=== PATIENT | female | born 1995 | race Caucasian/White ===

== ENCOUNTER 2019-03-03 22:09 | Emergency (ER) | payer SELFPAY ==
[2019-03-03 23:57] LABS: APPEARANCE,URINE CLEAR; BILIRUBIN,URINE NEGATIVE (NEGATIVE); COLOR,URINE YELLOW; GLUCOSE, URINE NEGATIVE (NEGATIVE); KETONES,URINE TRACE mg/dL (NEGATIVE); LEUKOCYTE ESTERASE,URINE NEGATIVE (NEGATIVE); NITRITE,URINE NEGATIVE (NEGATIVE); PROTEIN,URINE NEGATIVE (NEGATIVE); URINE SPECIFIC GRAVITY 1.015; UROBILINOGEN,URINE NEGATIVE mg/dL (<2.0)
[2019-03-04 00:07] LABS: ABSOLUTE EOSINOPHILS # (AUTO) 0.3 10^3/uL (0.0-0.6); ABSOLUTE LYMPHOCYTES (AUTO) 2.6 10^3/uL (0.5-4.7); ABSOLUTE MONOCYTES (AUTO) 0.5 10^3/uL (0.1-1.4); ABSOLUTE NEUT (AUTO) 3.3 10^3/uL (1.7-8.2); BASOPHILS % (AUTO) 0.5 % (0-2); HEMATOCRIT 42.8 % (36.0-47.0); HEMOGLOBIN 14.4 g/dL (12.0-15.5); LYMPHOCYTES % (AUTO) 38.7 % (13-45); MEAN CORPUSCULAR HEMOGLOBIN 30.1 pg (27.0-33.4); MEAN CORPUSCULAR HGB CONC 33.6 g/dL (32.0-36.0); MEAN CORPUSCULAR VOLUME 90 fl (80-97); MONOCYTES % (AUTO) 8.1 % (3-13); PLATELET COUNT 209 10^3/uL (150-450); RED BLOOD COUNT 4.77 10^6/uL (3.72-5.28); RED CELL DISTRIBUTION WIDTH 13.2 % (11.5-14.0); SEGMENTED NEUTROPHILS % (AUTO) 48.7 % (42-78); TOTAL CELLS COUNTED % (AUTO) 100 %; WHITE BLOOD COUNT 6.8 10^3/uL (4.0-10.5)
[2019-03-04] MEDS ORDERED: ONDANSETRON 4 MG TAB.RAPDIS PO ONE (00:08)
[2019-03-04] MEDS ORDERED: KETOROLAC TROMETHAMINE 10 MG TABLET PO ONE (00:09)
[2019-03-04 00:12] LABS: ALBUMIN 4.7 g/dL (3.5-5.0); ALKALINE PHOSPHATASE 61 U/L (38-126); ANION GAP 11 (5-19); ASPARTATE AMINO TRANSFERASE 22 U/L (14-36); BILIRUBIN,DIRECT 0.2 mg/dL (0.0-0.4); BILIRUBIN,TOTAL 0.4 mg/dL (0.2-1.3); BLOOD UREA NITROGEN 13 mg/dL (7-20); CALCIUM 9.8 mg/dL (8.4-10.2); CARBON DIOXIDE 25 mmol/L (22-30); CHLORIDE 104 mmol/L (98-107); GLUCOSE 91 mg/dL (75-110); POTASSIUM 3.9 mmol/L (3.6-5.0); TOTAL PROTEIN 7.7 g/dL (6.3-8.2)
--- NOTE | 2019-03-04 01:22 | RADIOLOGY REPORT (SQ) ---
EXAM DESCRIPTION: US PELVIS TRANSVAGINAL COMPLETED DATE/TME: 03/04/2019 00:08 CLINICAL HISTORY: 23 years, Female, RLQ pain h/o ovarian cyst that required surgery COMPARISON: None. TECHNIQUE: Transverse and longitudinal transvaginal sonographic images of the pelvis LIMITATIONS: None. FINDINGS: The uterus measures 6.9 x 3.4 x 4.5 cm. The myometrium is homogenous. The endometrium measures 4.6 mm. The right ovary measures 2.3 x 1.2 x 1.5 cm, the left 2.5 x 3.0 x 2.3 cm. Doppler images shows arterial and venous flow to each ovary. Bilateral ovarian follicles. 1.6 x 1.2 cm cyst of the left ovary extending exophytically likely reflects dominant follicle. No solid adnexal mass. No free fluid IMPRESSION: Simple appearing 1.6 cm cyst of the left ovary as above. No follow-up imaging is required. Recommendations for f/u of ovarian anechoic simple cyst, simple cyst with single thin <3 mm septation, or focal calcification in wall of cyst (1): Pre-menopause: <= 5 cm No follow-up imaging recommended >5 cm - <=7 cm US f/u annually >7 cm Consider MR w/IVC or surgical evaluation Post-menopause (>=1 year from last menstrual period): <=3 cm No follow-up imaging recommended >3 cm - <=7 cm US f/u annually >7 cm Consider MR w/IVC or surgical evaluation (1) Recommendations based on 2010 SRU Consensus Conference Statement on the Management of Asymptomatic Ovarian and Other Adnexal Cysts Imaged at US: Radiology. 2009;256(3):943-28 copyright 2010 [employer]- All Rights Reserved
[2019-03-04] MEDS ORDERED: PROMETHAZINE HCL INJ 25 MG/1 ML VIAL IV ONE (01:24)
[2019-03-04] MEDS ORDERED: PROMETHAZINE HCL INJ 25 MG/1 ML VIAL ONE (01:26)
--- NOTE | 2019-03-04 01:34 | ER Document Report ---
ED General - General Chief Complaint: Abdominal Pain Stated Complaint: RIGHT SIDED LOWER ABDOMINAL PAIN Time Seen by Provider: 03/04/19 00:01 Mode of Arrival: Ambulatory Information source: Patient, [facility] Records Notes: 23-year-old female with history of ovarian cyst presents with complaint of right lower quadrant abdominal pain that started today. Patient states the pain was sudden in onset, sharp and has been constant. Patient has had associated nausea without vomiting. She denies any fever, chills, chest pain, shortness of breath, dysuria, hematuria, vaginal discharge, concern for STD. TRAVEL OUTSIDE OF THE [place] IN LAST 30 DAYS: No - HPI Onset: This morning Onset/Duration: Sudden Quality of pain: Sharp Severity: Moderate Pain Level: 3 Associated symptoms: Nausea. denies: Body/muscle aches, Chest pain, Diarrhea, Fever, Headache, Vomiting, Shortness of breath, Weakness Exacerbated by: Denies Relieved by: Denies Similar symptoms previously: Yes Recently seen / treated by doctor: No - Related Data Allergies/Adverse Reactions: Interferons Allergy (Verified 03/03/19 23:21) Past Medical History - General Information source: Patient - Social History Smoking Status: Never Smoker Frequency of alcohol use: None Drug Abuse: None Lives with: Spouse/Significant other Family History: Reviewed & Not Pertinent Patient has suicidal ideation: No Patient has homicidal ideation: No Renal/ Medical History: Reports: Hx Ovarian Cysts. Denies: Hx Peritoneal Dialysis Review of Systems - Review of Systems Notes: REVIEW OF SYSTEMS: CONSTITUTIONAL : Denies fever, chills, or sweats. Denies recent illness. Denies weight loss, recent hospitalizations. EENT: Denies visual changes, eye pain. Denies sore throat, oral lesions, difficulty swallowing. CARDIOVASCULAR: Denies chest pain. Denies palpitations. Denies lower extremity edema. RESPIRATORY: Denies cough. Denies shortness of breath, wheezing. GASTROINTESTINAL: Denies abdominal distention. Denies vomiting, or diarrhea. Denies blood in vomitus, stools, or per rectum. Denies black, tarry stools. Denies constipation. GENITOURINARY: Denies difficulty urinating, painful urination, frequency, blood in urine, or vaginal discharge. MUSCULOSKELETAL: Denies back or neck pain or stiffness. Denies joint pain or swelling. SKIN: Denies rash, lesions or sores. HEMATOLOGIC : Denies easy bruising or bleeding. LYMPHATIC: Denies swollen glands. NEUROLOGICAL: Denies confusion or altered mental status. Denies loss of consciousness. Denies dizziness or lightheadedness. Denies headache. Denies weakness or paralysis. Denies problems difficulty with ambulation, slurred speech. Denies sensory loss, numbness, or tingling. Denies seizures. PSYCHIATRIC: Denies anxiety or stress. Denies depression, suicidal ideation, or homicidal ideation. Denies visual or auditory hallucinations. Physical Exam - Vital signs Vitals: Temp Pulse Resp BP Pulse Ox 98.1 F 77 16 119/79 96 03/03/19 22:29 03/03/19 22:29 03/03/19 22:29 03/03/19 22:29 03/03/19 22:29 - Notes Notes: PHYSICAL EXAMINATION: GENERAL: Well-appearing, well-nourished and in no acute distress. HEAD: Atraumatic, normocephalic. EYES: Pupils equal round and reactive to light, extraocular movements intact, conjunctiva are normal. ENT: Nares patent, oropharynx clear without exudates. Moist mucous membranes. NECK: Normal range of motion, supple without lymphadenopathy LUNGS: Breath sounds clear to auscultation bilaterally and equal. No wheezes rales or rhonchi. HEART: Regular rate and rhythm without murmurs ABDOMEN: Soft, tenderness with palpation to the right lower quadrant, nondistended abdomen. No guarding, no rebound. No masses appreciated. Female : Pelvic exam; External genitalia unremarkable. Speculum exam with no discharge. Vaginal wall unremarkable. Os closed. No cervical motion tenderness. No adnexal tenderness or masses appreciated. Swabs obtained for gonorrhea, chlamydia and wet prep. Musculoskeletal: Normal range of motion, no pitting or edema. No cyanosis. NEUROLOGICAL: Cranial nerves grossly intact. Normal speech, normal gait. Normal sensory, motor exams PSYCH: Normal mood, normal affect. SKIN: Warm, Dry, normal turgor, no rashes or lesions noted. Course - Re-evaluation Re-evalutation: 03/04/19 01:38 Laboratory 03/03/19 03/03/19 03/03/19 23:45 23:45 23:45 WBC 6.8 RBC 4.77 Hgb 14.4 Hct 42.8 MCV 90 MCH 30.1 MCHC 33.6 RDW 13.2 Plt Count 209 Lymph % (Auto) 38.7 [place] % (Auto) 8.1 Eos % (Auto) 4.0 Baso % (Auto) 0.5 Absolute Neuts (auto) 3.3 Absolute Lymphs (auto) 2.6 Absolute Monos (auto) 0.5 Absolute Eos (auto) 0.3 Absolute Basos (auto) 0.0 Seg Neutrophils % 48.7 Sodium 139.6 Potassium 3.9 Chloride 104 Carbon Dioxide 25 Anion Gap 11 BUN 13 Creatinine 0.64 Est GFR ( Amer) > 60 Est GFR (MDRD) Non-Af > 60 Glucose 91 Calcium 9.8 Total Bilirubin 0.4 Direct Bilirubin 0.2 Neonat Total Bilirubin Not Reportable Neonat Direct Bilirubin Not Reportable Neonat Indirect Bili Not Reportable AST 22 ALT 15 Alkaline Phosphatase 61 Total Protein 7.7 Albumin 4.7 Lipase 94.8 Urine Color YELLOW Urine Appearance CLEAR Urine pH 6.0 Ur Specific [place] 1.015 Urine Protein NEGATIVE Urine Glucose (UA) NEGATIVE Urine Ketones TRACE H Urine Blood NEGATIVE Urine Nitrite NEGATIVE Urine Bilirubin NEGATIVE Urine Urobilinogen NEGATIVE Ur Leukocyte Esterase NEGATIVE Urine WBC (Auto) 1 Urine RBC (Auto) 1 U Hyaline Cast (Auto) 1 Squamous Epi Cells Auto 2 Urine Mucus (Auto) RARE Urine Ascorbic Acid NEGATIVE Urine HCG, Qual NEGATIVE Transvaginal US 03/04/19 00:08 IMPRESSION: Simple appearing 1.6 cm cyst of the left ovary as above. No follow-up imaging is required. Recommendations for f/u of ovarian anechoic simple cyst, simple cyst with single thin <3 mm septation, or focal calcification in wall of cyst (1): Pre-menopause: <= 5 cm No follow-up imaging recommended >5 cm - <=7 cm US f/u annually >7 cm Consider MR w/IVC or surgical evaluation Post-menopause (>=1 year from last menstrual period): <=3 cm No follow-up imaging recommended >3 cm - <=7 cm US f/u annually >7 cm Consider MR w/IVC or surgical evaluation (1) Recommendations based on 2009 SRU Consensus Conference Statement on the Management of Asymptomatic Ovarian and Other Adnexal Cysts Imaged at US: Radiology. 2009;2563):016-38 copyright 2010 [employer]- All Rights Reserved Temp Pulse Resp BP Pulse Ox 98.1 F 77 16 119/79 96 03/03/19 22:29 03/03/19 22:29 03/03/19 22:29 03/03/19 22:29 03/03/19 22:29 Transvaginal US 03/04/19 00:08 IMPRESSION: Simple appearing 1.6 cm cyst of the left ovary as above. No follow-up imaging is required. Recommendations for f/u of ovarian anechoic simple cyst, simple cyst with single thin <3 mm septation, or focal calcification in wall of cyst (1): Pre-menopause: <= 5 cm No follow-up imaging recommended >5 cm - <=7 cm US f/u annually >7 cm Consider MR w/IVC or surgical evaluation Post-menopause (>=1 year from last menstrual period): <=3 cm No follow-up imaging recommended >3 cm - <=7 cm US f/u annually >7 cm Consider MR w/IVC or surgical evaluation (1) Recommendations based on 2010 SRU Consensus Conference Statement on the Management of Asymptomatic Ovarian and Other Adnexal Cysts Imaged at US: Radiology. 2009;2563):777-93 copyright 2010 [employer]- All Rights Reserved Abdomen/Pelvis CT 03/04/19 01:37 IMPRESSION: Abundant stool in the colon. No acute intra-abdominal/pelvic process. TECHNICAL DOCUMENTATION: Quality ID # 436: Final reports with documentation of one or more dose reduction techniques (e.g., Automated exposure control, adjustment of the mA and/or kV according to patient size, use of iterative reconstruction technique) copyright 2010 [employer]- All Rights Reserved History: 23-year-old female with a history of ovarian cyst presents with 1 day of right lower quadrant abdominal pain and associated nausea Patient evaluated. Vital signs were reviewed. Patient is afebrile, normotensive and not hypoxic. Previous medical records and nursing notes reviewed. Patient does not appear toxic or dehydrated they are in no acute distress Exam Findings: Tenderness with palpation to the right lower quadrant without guarding or rebound. Lab Findings: CBC is without leukocytosis or anemia. CMP shows no electrolyte abnormalities and normal renal function. LFTs WNL. UA not consistent with UTI. Patient is not . Patient Interventions/Monitor: Patient was given Toradol and Zofran for her pain and nausea. Transvaginal ultrasound was obtained and showed a left-sided simple cyst. No evidence of torsion, tubo-ovarian abscess. Pelvic exam performed and unremarkable. Patient continues to be very tender in the right lower quadrant so CT of the abdomen pelvis with IV contrast will be obtained to assess for appendicitis. CT remarkable for an abundant amount of stool, no evidence of appendicitis, obstruction. Patient declining enema. Revaluation: Patient still complaining of significant right lower quadrant pain. She was administered morphine. MDM: Presentation of a very well-appearing female in no acute distress. Abdominal exam is significant for right lower quadrant patient has no pain in the right upper quadrant abdominal. Patient is tolerating oral intake without difficulty and does not appear clinically dehydrated on examination. I do not suspect an acute appendicitis, tubo-ovarian abscess, bowel obstruction. Patient given mag citrate in the department. Patient was evaluated and treated as appropriate for the patient's presenting symptoms and complaint, with consideration of any critical or life threatening conditions that may be associated with their obtained history and exam as noted above. All results were discussed with patient and her significant other who is at the bedside. Patient provided the opportunity to ask questions, and express concerns. Patient was educated on treatments based on their presumed diagnosis as noted above. At this time we will discharge the patient with return precautions and follow-up recommendations. Verbal discharge instructions given a the bedside. Medication warnings reviewed. Patient is in agreement with this plan and has verbalized understanding of return precautions. After careful consideration I feel that that patient can be safely discharged from the emergency department, they were advised to followup with a primary care physician in 2-3 days. Dictation on this chart was performed using voice recognition software and may result in unintended grammatical, spelling, syntax or errors. 03/04/19 01:53 03/04/19 02:36 - Vital Signs Vital signs: Temp Pulse Resp BP Pulse Ox 98.1 F 77 16 119/79 96 03/03/19 22:29 03/03/19 22:29 03/03/19 22:29 03/03/19 22:29 03/03/19 22:29 - Laboratory Result Diagrams: 03/03/19 23:45 03/03/19 23:45 Laboratory results interpreted by me: 03/03/19 23:45 Urine Ketones TRACE H - Diagnostic Test Radiology reviewed: Image reviewed, Reports reviewed Discharge - Discharge Clinical Impression: Right lower quadrant abdominal pain, Left ovarian simple cyst Constipation Qualifiers: Constipation type: unspecified constipation type Qualified Code(s): K59.00 - Constipation, unspecified Condition: Good Disposition: HOME, SELF-CARE Instructions: Bulk Laxatives, Abdominal Pain ([facility]), Observation for Appendicitis ([facility]), Constipation ([facility]) Additional Instructions: Follow up with your [id number] hours for further care or return to the ED IMMEDIATELY if symptoms worsen or you have any concerns. If you cannot afford to follow up with your primary care physician a list of low cost clinics have been provided at the end of your discharge papers as well. Most prescribed medications have multiple side effects. The safest thing to do is when filling your prescription speak to your pharmacist regarding possible interactions with your normal home medications and over the counter medications such as Ibuprofen, Tylenol, Benadryl. If you experience any symptoms that cause you discomfort or concern you should discontinue the medication immediately and return to the emergency room or call your primary care physician. Prescriptions: Polyethylene Glycol 3350 [Miralax Powder 17 gm/Packet] 1 packet PO DAILY #7 pkg
[2019-03-04 02:05] LABS: RBCS (WET MOUNT) NO RBCS SEEN; T.VAGINALIS (WET MOUNT) NO TRICHOMONAS SEEN; WBCS (WET MOUNT) 1+ WBCS SEEN; YEAST (WET MOUNT) NO YEAST SEEN
[2019-03-04] MEDS ORDERED: MORPHINE SULFATE 10 MG/ML INJ IV ONE (02:19)
--- NOTE | 2019-03-04 02:28 | RADIOLOGY REPORT (SQ) ---
EXAM DESCRIPTION: CT ABDOMEN PELVIS WITH IV CONTRAST COMPLETED DATE/TME: 03/04/2019 01:37 CLINICAL HISTORY: 23 years, Female, rlq pain COMPARISON: None. TECHNIQUE: 372 Images stored on PACS. All CT scanners at this facility use dose modulation, iterative reconstruction, and/or weight based dosing when appropriate to reduce radiation dose to as low as reasonably achievable (ALARA). [facility]: Dose Right [facility]: CareDose [facility]: Dose Right [facility]: Teradose 4D [facility]: [place] LIMITATIONS: None. FINDINGS: Limited evaluation of the lung bases is unremarkable. Osseous structures are grossly intact. The liver, spleen, adrenal glands, pancreas, kidneys are unremarkable. The gallbladder is present. Abundant stool in the colon. Normal appendix. No free air. No free fluid.. IMPRESSION: Abundant stool in the colon. No acute intra-abdominal/pelvic process. TECHNICAL DOCUMENTATION: Quality ID # 436: Final reports with documentation of one or more dose reduction techniques (e.g., Automated exposure control, adjustment of the mA and/or kV according to patient size, use of iterative reconstruction technique) copyright 2011 [employer]- All Rights Reserved
[2019-03-04] MEDS ORDERED: MAGNESIUM CITRATE 296 ML BOTTLE PO ONE (02:35)
[2019-03-04 02:42] VITALS: BP 117/63
[2019-03-04 03:32] LABS: CHLAM PCR NOT DETECTED (NOT DETECT)
== END 2019-03-04 02:57 | disposition home or self-care (01) ==
LOC: ER 22:09
DX: N83.202 Unspecified ovarian cyst, left side (principal); K59.00 Constipation, unspecified; R10.31 Right lower quadrant pain; R11.0 Nausea
CPT/HCPCS: 99284; 96374; 96375; 36415; 87210; 83690; 85025; 81025; 80053; 81001; 87491; 87591; 76830; 93976; 74177; J3490 ×2; S0119; J2270; J2550

== ENCOUNTER 2019-06-20 02:29 | Emergency (ER) | payer SELFPAY ==
[2019-06-20] MEDS ORDERED: ACETAMINOPHEN 325 MG TABLET PO ONE ×2 (02:53→05:46)
[2019-06-20] MEDS ORDERED: OXYCODONE-ACETAMINOPHEN 5-325 MG TABLET PO ONE (06:44)
[2019-06-20] MEDS ORDERED: HYDROCODONE/ACETAMINOPHEN 5-325 MG (6 TAB/ER DISP) PO PRN (06:45)
[2019-06-20 07:13] VITALS: BP 115/60
--- NOTE | 2019-06-20 07:26 | RADIOLOGY REPORT (SQ) ---
EXAM: X-ray tibia-fibula two views CLINICAL DATA: 24-year-old female with injury, swelling and redness to left leg TECHNICAL DATA: Two x-ray views of the left tibia fibula were performed on 06/20/2019 at 6:15 AM. COMPARISONS: None FINDINGS: There is no evidence of fracture or dislocation. There is no significant arthritis or degenerative change. No focal lytic or sclerotic bone lesions are seen. Bone mineralization is normal. No focal soft tissue abnormalities are identified. IMPRESSION: No evidence of acute osseous injury involving the left tibia fibula.
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
== END 2019-06-20 07:22 | disposition home or self-care (01) ==
LOC: ER 02:29
DX: S80.12XA Contusion of left lower leg, initial encounter (principal); W20.8XXA Other cause of strike by thrown, projected or falling object, initial encounter; Y92.009 Unspecified place in unspecified non-institutional (private) residence as the place of occurrence of the external cause; Z88.8 Allergy status to other drugs, medicaments and biological substances
CPT/HCPCS: 99283

== ENCOUNTER 2019-11-06 20:01 | Emergency (ER) | payer SELFPAY ==
[2019-11-06 20:18] VITALS: BP 135/66
[2019-11-06] MEDS ORDERED: ASPIRIN 81 MG TABLET, CHEWABLE PO ONE (20:18)
--- NOTE | 2019-11-06 20:26 | ER Document Report ---
ED Medical Screen (RME) - General Chief Complaint: Chest Pain Stated Complaint: SEVERE CHEST PAIN Time Seen by Provider: 11/06/19 20:17 Mode of Arrival: Ambulatory Information source: Patient Notes: 24-year-old female presents to ED for complaint of left chest pain. She states 3 days ago she had some shoulder neck and rib pain it came and went and 30 minutes ago she started having sharp stabbing 5 out of 5 constant pain. She states it is been constant since then. She is alert oriented respirations regular nonlabored unlabored speaking in full sentences. She does have clear lung sounds bilaterally. 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 She states at times she had so many tumors on her vocal cords that she had multiple surgeries in her trach while she was a child she states then the tumors moved to her lungs. She states she is seen many doctors and they have told her that is not cancerous. She is also had surgery for ovarian cyst. She states she does not smoke occasionally drinks and does not use any drugs. She states her last menstrual period was about 2 weeks ago. I have greeted and performed a rapid initial assessment of this patient. A comprehensive ED assessment and evaluation of the patient, analysis of test results and completion of medical decision making process will be conducted by an additional ED providers. TRAVEL OUTSIDE OF THE [place] IN LAST 30 DAYS: No - Related Data Allergies/Adverse Reactions: Interferons Allergy (Verified 03/03/19 23:21) Past Medical History Renal/ Medical History: Reports: Hx Ovarian Cysts. Denies: Hx Peritoneal Dialysis Physical Exam - Vital signs Vitals: Temp Pulse Resp BP Pulse Ox 98.0 F 93 20 135/66 H 99 11/06/19 20:17 11/06/19 20:17 11/06/19 20:17 11/06/19 20:17 11/06/19 20:17 Course - Vital Signs Vital signs: Temp Pulse Resp BP Pulse Ox 98.0 F 93 20 135/66 H 99 11/06/19 20:17 11/06/19 20:17 11/06/19 20:17 11/06/19 20:17 11/06/19 20:17
[2019-11-06 21:04] LABS: ABSOLUTE EOSINOPHILS # (AUTO) 0.2 10^3/uL (0.0-0.6); ABSOLUTE LYMPHOCYTES (AUTO) 1.7 10^3/uL (0.5-4.7); ABSOLUTE MONOCYTES (AUTO) 0.5 10^3/uL (0.1-1.4); ABSOLUTE NEUT (AUTO) 5.4 10^3/uL (1.7-8.2); BASOPHILS % (AUTO) 0.3 % (0-2); EOSINOPHILS % (AUTO) 2.3 % (0-6); HEMATOCRIT 39.5 % (36.0-47.0); HEMOGLOBIN 13.9 g/dL (12.0-15.5); LYMPHOCYTES % (AUTO) 21.5 % (13-45); MEAN CORPUSCULAR HEMOGLOBIN 31.6 pg (27.0-33.4); MEAN CORPUSCULAR HGB CONC 35.3 g/dL (32.0-36.0); MEAN CORPUSCULAR VOLUME 89 fl (80-97); MONOCYTES % (AUTO) 6.2 % (3-13); PLATELET COUNT 210 10^3/uL (150-450); RED BLOOD COUNT 4.42 10^6/uL (3.72-5.28); RED CELL DISTRIBUTION WIDTH 12.9 % (11.5-14.0); SEGMENTED NEUTROPHILS % (AUTO) 69.7 % (42-78); TOTAL CELLS COUNTED % (AUTO) 100 %; WHITE BLOOD COUNT 7.7 10^3/uL (4.0-10.5)
--- NOTE | 2019-11-06 21:12 | RADIOLOGY REPORT (SQ) ---
EXAM DESCRIPTION: PA and lateral radiographs of the chest CLINICAL HISTORY: 24 years Female, chest pain got several days worse last 3o min COMPARISON: None. FINDINGS: Lungs: Subtle consolidation with air bronchograms is present in the left upper lobe at the lung apex. This is concerning for pneumonia. The right lung is clear. No pneumothorax or pleural effusion. Mediastinum: Cardiac and mediastinal silhouette are normal. Bones: Osseous structures are normal. IMPRESSION: Left apical lung infiltrate concerning for pneumonia.
[2019-11-06 21:14] LABS: APPEARANCE,URINE SLIGHTLY-CLOUDY; BILIRUBIN,URINE NEGATIVE (NEGATIVE); COLOR,URINE YELLOW; GLUCOSE, URINE NEGATIVE (NEGATIVE); KETONES,URINE 20 mg/dL (NEGATIVE); PROTEIN,URINE NEGATIVE (NEGATIVE); URINE SPECIFIC GRAVITY 1.027; UROBILINOGEN,URINE NEGATIVE mg/dL (<2.0)
[2019-11-06 21:22] LABS: ALBUMIN 4.2 g/dL (3.5-5.0); ALKALINE PHOSPHATASE 59 U/L (38-126); ANION GAP 8 (5-19); ASPARTATE AMINO TRANSFERASE 24 U/L (14-36); BILIRUBIN,TOTAL 0.5 mg/dL (0.2-1.3); BLOOD UREA NITROGEN 20 mg/dL (7-20); CALCIUM 9.1 mg/dL (8.4-10.2); CARBON DIOXIDE 25 mmol/L (22-30); CHLORIDE 103 mmol/L (98-107); GLUCOSE 97 mg/dL (75-110); POTASSIUM 3.7 mmol/L (3.6-5.0)
[2019-11-06 21:30] LABS: INTERNATIONAL RATION (INR) 1.03; PARTIAL THROMBOPLASTIN TIME 28.1 SEC (23.5-35.8); PROTHROMBIN TIME 13.5 SEC (11.4-15.4)
--- NOTE | 2019-11-06 21:54 | ER Document Report ---
ED General - General Chief Complaint: Chest Pain Stated Complaint: SEVERE CHEST PAIN Time Seen by Provider: 11/06/19 20:17 Mode of Arrival: Ambulatory Information source: Patient TRAVEL OUTSIDE OF THE [place] 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 The patient denies fevers, chills, sweats, nausea, vomiting, cough, shortness of breath. The patient denies family history of ACS and blood clots. The patient is a nonsmoker, she has not had any recent surgeries, she has not recently traveled anywhere but she is on control - Related Data Allergies/Adverse Reactions: Interferons Allergy (Verified 03/03/19 23:21) Past Medical History - General Information source: Patient - Social History Smoking Status: Never Smoker Chew tobacco use (# tins/day): No Frequency of alcohol use: Occasional Family History: Reviewed & Not Pertinent Patient has homicidal ideation: No Renal/ Medical History: Reports: Hx Ovarian Cysts. Denies: Hx Peritoneal Dialysis Review of Systems - Review of Systems Constitutional: No symptoms reported EENT: No symptoms reported Cardiovascular: Chest pain Respiratory: No symptoms reported Gastrointestinal: No symptoms reported Genitourinary: No symptoms reported Female Genitourinary: No symptoms reported Musculoskeletal: No symptoms reported Skin: No symptoms reported Hematologic/Lymphatic: No symptoms reported Neurological/Psychological: No symptoms reported -: Yes All other systems reviewed and negative Physical Exam - Vital signs Vitals: Temp Pulse Resp BP Pulse Ox 98.0 F 93 20 135/66 H 99 11/06/19 20:17 11/06/19 20:17 11/06/19 20:17 11/06/19 20:17 11/06/19 20:17 - Notes Notes: GENERAL: Well-appearing, well-nourished and in no acute distress. HEAD: Atraumatic, normocephalic. EYES: Pupils equal round and reactive to light, extraocular movements intact, sclera anicteric, conjunctiva are normal. ENT: External ears normal, nares patent, oropharynx clear without exudates. Moist mucous membranes. NECK: Normal range of motion, supple without lymphadenopathy or JVD. LUNGS: Breath sounds clear to auscultation bilaterally and equal. No wheezes rales or rhonchi. HEART: Regular rate and rhythm without murmurs, rubs or gallops. ABDOMEN: Soft, nontender, normoactive bowel sounds. No guarding, no rebound. No masses appreciated. EXTREMITIES: Normal range of motion, no pitting or edema. No clubbing or cyanosis. NEUROLOGICAL: Cranial nerves II through XII grossly intact. Normal speech, normal gait. PSYCH: Normal mood, normal affect. SKIN: Warm, Dry, normal turgor, no rashes or lesions noted. Course - Re-evaluation Re-evalutation: 11/06/19 23:03 The patient is here for left sided chest pain in the area which Radiology feels there could be a small pneumonia. Patient has not been having fevers, has a normal WBC count, has not had a cough, has not had chills, and has not had sweats. The patient had a D-Dimer which was negative. Will therefore treat for pneumonia with Levaquin. Patient given a norco take home pack after 4mg of Morphine since her pain was not well controlled with Toradol alone in the ER. - Vital Signs Vital signs: Temp Pulse Resp BP Pulse Ox 98.0 F 93 20 135/66 H 98 11/06/19 20:24 11/06/19 20:17 11/06/19 20:17 11/06/19 20:17 11/06/19 21:28 - Laboratory Result Diagrams: 11/06/19 20:35 11/06/19 20:35 Laboratory results interpreted by me: 11/06/19 11/06/19 20:35 20:45 Sodium 136.4 L Urine Ketones 20 H - Diagnostic Test Radiology reviewed: Image reviewed, Reports reviewed - EKG Interpretation by Me EKG shows normal: Sinus rhythm, [place], Intervals, QRS Complexes, ST-T Waves Rate: Normal Rhythm: NSR Discharge - Discharge Clinical Impression: Pneumonia Qualifiers: Pneumonia type: due to unspecified organism Laterality: left Lung location: upper lobe of lung Qualified Code(s): J18.9 - Pneumonia, unspecified organism Condition: Stable Disposition: HOME, SELF-CARE Instructions: Pneumonia ([facility]) Additional Instructions: Take antibiotics (Levaquin) as prescribed. Follow up with your primary care doctor or one of the primary care doctors listed in your paperwork if symptoms persist despite treatment. Return to an ER for trouble breathing, shortness of breath, sustained high fevers or if worse in anyway. Prescriptions: Levofloxacin [Levaquin 750 mg Tablet] 750 mg PO DAILY #5 tablet
--- NOTE | 2019-11-06 22:05 | EKG REPORT ---
SEVERITY:- BORDERLINE ECG - SINUS RHYTHM PROBABLE LEFT ATRIAL ABNORMALITY : Confirmed by: Tasneem Shearer MD 06-Nov-2019 22:04:22
[2019-11-06] MEDS ORDERED: KETOROLAC TROMETHAMINE INJ/PF 30 MG/1 ML SDV IV ONE (22:19)
[2019-11-06] MEDS ORDERED: LEVOFLOXACIN 750 MG TABLET PO ONE (22:55)
[2019-11-06] MEDS ORDERED: MORPHINE SULFATE 10 MG/ML INJ IV ONE (23:02)
[2019-11-06] MEDS ORDERED: HYDROCODONE/ACETAMINOPHEN 5-325 MG (6 TAB/ER DISP) PO PRN (23:03)
== END 2019-11-06 23:35 | disposition home or self-care (01) ==
LOC: ER 20:01
DX: J18.9 Pneumonia, unspecified organism (principal); R07.9 Chest pain, unspecified; M54.2 Cervicalgia; R07.81 Pleurodynia; Z79.3 Long term (current) use of hormonal contraceptives
CPT/HCPCS: 93005; 99285; 96374; 96375; 36415; 83690; 84703; 85025; 85610; 85730; 80053; 81001; 84484; 85379; 71046; 93010; J1885; J2270